=== PATIENT | male | born 1965 | race Caucasian/White ===

== ENCOUNTER 2023-12-20 16:51 | Emergency (ER) | payer OTHER, SELFPAY ==
[2023-12-20 16:57] VITALS: BP 148/84
[2023-12-20 17:04] VITALS: BMI 29.7
[2023-12-20 17:08] VITALS: BP 136/78
[2023-12-20 18:00] VITALS: BP 140/80
[2023-12-20 18:08] LABS: % Basophils 1.3 % (0-2); % Eosinophils 2.9 % (0-6); % Immature Granulocytes 0.5 % (0-0.5); % Lymphocytes 30.1 % (20.5-51.1); % Monocytes 5.9 % (1.7-9.3); % Neutrophils 59.3 % (42.2-75.2); Absolute Basophils 0.1 10^3/uL (0-0.2); Absolute Eosinophils 0.2 10^3/uL (0-0.7); Absolute Lymphocytes 1.9 10^3/uL (1.2-3.4); Absolute Monocytes 0.4 10^3/uL (0.1-0.6); Absolute Neutrophils 3.7 10^3/uL (1.4-6.5); Hematocrit 40.7 % (39.0-52.0); Mean Corp Hgb Conc. 40.3 g/dL (33.0-37.0); Mean Corpuscular Hgb 33.5 pg (27.0-31.0); Mean Corpuscular Volume 83.2 fL (80.0-94.0); Mean Platelet Volume 11.2 fL (7.4-10.4); Nucleated Red Blood Cells % 0.3 % (-); Platelet Count 329 10^3/uL (130-400); Red Blood Cell Count 4.89 10^6/uL (4.70-6.10); Red Cell Dist. Width 12.4 % (11.5-14.5); White Blood Cell Count 6.3 10^3/uL (4.8-10.8)
--- NOTE | 2023-12-20 18:13 | ED.GENMED ---
History of Present Illness
General
Chief Complaint: Chest Pain
Time Seen by Provider: 12/20/23 17:05
History of Present Illness
History of Present Illness:
58-year-old male with history of hypertension and hyperlipidemia presenting to the emergency department for chest pain. Patient reports the past 3 to 4 days he has been having left-sided chest pain, which has been intermittent in nature. However,
does have a constant dull ache. Yesterday, felt the pain go to his shoulder, which concerned him. Does note that he has had chest pain in the past, follows with cardiology. Last stress test was about 3 to 4 years ago. Reports family history of
heart disease, father at age of 56 of a heart attack. Denies difficulty breathing. Denies fever. Denies abdominal pain or GI symptoms. Denies additional acute medical complaints.
Past History
Past History
ED Past Medical History: HTN, Hypercholesterolemia and Other (kidney stone , hiatal hernia); Negative IDDM or NIDDM
ED Past Surgical History: Orthopedic (R shoulder pectoral muscle reattached)
Social History
Tobacco: Non-smoker
Alcohol: Occasional
Drug: None
Personal:
Living: with family
Employment: Employed
Family History
Family History: Hypertension (Father and multiple siblings) and Early CAD (Father)
Phy Exam
Physical Exam
Physical Exam:
General: Well-appearing, no clinical signs of dehydration, nontoxic and in no acute distress
HEENT: protecting airway
Neck: appears supple
CV: Normal heart rate, regular rhythm, no evidence of cyanosis
Resp: No accessory muscle use, no increased work of breathing, lungs clear to auscultation bilaterally
Abd: Soft and non-distended, no tenderness to palpation
Extremities: No deformities, no swelling, no erythema
Neuro: alert, no focal neurologic deficit
: deferred
Rectal: deferred
Psych: Normal affect
Skin: Intact
Scores
Heart Score for Chest Pain Patients
STEMI patient?: No
History: Slightly or Non-Suspicious
ECG: Normal
Age: >45 - <65 years
Risk Factors: >/= 3 Risk Factors or History of CAD
Troponin: </= Normal Limit
Heart Score for Chest Pain Patients: 3
Heart Score Risk: 2.5% MACE over next 6 weeks
Course
Orders/Labs/Results
Orders:
Orders
12/20/23 16:52
ECG [Electrocardiogram (*1)] Urgent
Reason for Study: Chest Pain
EKG- Treatment ONCE
12/20/23 17:14
Complete Blood Count/With Diff Urgent
12/20/23 17:51
Basic Metabolic Panel Urgent
12/20/23 19:02
Troponin I Urgent
12/20/23 21:34
Troponin I Urgent
12/20/23 22:29
EKG [Electrocardiogram (*1)] Urgent
Reason for Study: Tachycardia
EKG- Treatment ONCE
Abnormal Lab Results
12/20/23 12/20/23
17:14 17:51
MCH 33.5 H pg
(27.0-31.0)
MCHC 40.3 H g/dL
(33.0-37.0)
MPV 11.2 H fL
(7.4-10.4)
Carbon Dioxide 19 L mmol/L
(22-30)
Calcium 7.8 L mg/dl
(8.4-10.2)
12/20/23 17:14
12/20/23 17:51
Vital Signs
Initial and Last Documented VS:
Initial Vital Signs
Temp Pulse Resp BP Pulse Ox
98.3 F 68 18 148/84 96
12/20/23 16:57 12/20/23 16:57 12/20/23 16:57 12/20/23 16:57 12/20/23 16:57
Last Documented Vital Signs
Temp Pulse Resp BP Pulse Ox
98.3 F 64 19 147/88 97
12/20/23 16:57 12/20/23 22:00 12/20/23 22:00 12/20/23 20:00 12/20/23 20:00
MDM/Problems Addressed
MDM/Problems Addressed:
58-year-old male with history of hypertension hyperlipidemia presenting to the emergency department for left-sided chest pain. Vital signs on arrival are normal.
On exam, patient is well-appearing, no acute distress. Benign cardiac and pulmonary exam. EKG reviewed, no STEMI. No significant change from prior EKG. Patient does however have cardiac risk factors. For this reason we will obtain laboratory
analysis including troponin
Patient otherwise hemodynamically stable. No respiratory symptoms, no tachycardia, no PE risk factors. Blood pressure within normal limits, pain is not radiating to the back, without concern for aortic catastrophe
20:30 -troponin is within normal limits, however detectable. For this reason we will obtain second troponin.
22:30 -second troponin within normal limits. EKG repeated, unchanged. Patient remained stable. However, patient's blood test Clotting secondary to high fat content. Patient reports this is known to him, has had very high triglycerides since he
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 At this time, feel patient is stable for discharge, however given patient's risk factors, feel patient warrants close cardiology follow-up, likely stress testing or cardiac catheterization.
Advise calling his merchandise associate tomorrow. Patient in agreement with plan.
*EKG
Interpreted by ED Provider?: Yes
EKG Intrepretation Date: 12/20/23
EKG Intrepretation Time: 18:30
Interpretation: normal
Comparison EKG: no comparison EKG present
Heart Rate: 64
Rate: normal
Rhythm: sinus
Moore: normal axis
Interval: normal interval
QRS Pattern: normal QRS and left vent hypertrophy
Ischemia: no ischemia
*Critical Care Note
Total Time (30-74mins, 75-104mins- exclusive of procedures): Not Applicable
ED Attending Note
-
Portions of this chart may have been created with voice recognition software.� Occasional wrong word or��sound alike� substitutions may have occurred due to the inherent limitations of voice recognition software.
Discharge Plan
Departure
Prescriptions:
No Action
atorvastatin 40 MG tablet
40 mg PO DAILY
amlodipine 5 MG tablet
5 mg PO DAILY
aspirin [Adult Low Dose Aspirin] 81 MG tablet,delayed release (DR/EC)
81 mg PO DAILY
benazepril 40 MG tablet
40 mg PO DAILY
omega-3 acid ethyl esters [Lovaza] 1 GM capsule
2 gm PO DAILY
fenofibrate 160 MG tablet
160 mg PO DAILY
chlorthalidone 25 MG tablet
25 mg PO DAILY Qty: 0 0RF
Rx Instructions:
DO NOT RESUME FOR 3 MORE DAYS
pantoprazole 40 MG tablet,delayed release (DR/EC)
40 mg PO BID Qty: 60 0RF
Referrals:
Polo Nguyen MD [Family Provider] -
Interventions
Interventions:
*Risk Screen - Suicide Last Done: 12/20/23 17:04
*General Assessment Last Done: 12/20/23 17:04
*Neglect/Abuse Screening Last Done: 12/20/23 17:04
ED- Fall Risk Assessment Last Done: 12/20/23 17:04
*ED COVID-19 Vaccine History Last Done: 12/20/23 17:04
ED- Cardiac Assessment Last Done: 12/20/23 17:12
Discharge Date and Time
Print Language: BELARUSIAN
[2023-12-20 18:38] LABS: Blood Urea Nitrogen 17 mg/dl (9-20); Calcium 7.8 mg/dl (8.4-10.2); Carbon Dioxide 19 mmol/L (22-30); Chloride 106 mmol/L (98-107); Estimated Creatinine Clearance 99 ml/min; Glucose 87 mg/dl (70-99); Sodium 136 mmol/L (135-145); eGFR > 60.00
[2023-12-20 19:02] VITALS: BP 143/89
[2023-12-20 19:44] LABS: Troponin I 0.023 ng/ml
[2023-12-20 20:00] VITALS: BP 147/88
[2023-12-20 22:00] VITALS: BP 145/80
[2023-12-20 22:05] LABS: Troponin I 0.022 ng/ml
== END 2023-12-20 22:40 | disposition home or self-care (01) ==
LOC: EMR 16:51
PROVIDERS: Emergency Medicine; EMERGENCY PHYSICIAN Student in an Organized Health Care Education/Training Program; FAMILY PHYSICIAN Family Medicine
DX: R07.89 Other chest pain (principal); I10 Essential (primary) hypertension; E78.00 Pure hypercholesterolemia, unspecified; I25.10 Atherosclerotic heart disease of native coronary artery without angina pectoris; Z82.49 Family history of ischemic heart disease and other diseases of the circulatory system; Z87.442 Personal history of urinary calculi
CPT/HCPCS: 99283; 80048; 84484; 85025; 93005; 96374; 96375; 96376

== ENCOUNTER 2023-12-26 06:07 | Day surgery (SDC) | payer OTHER, SELFPAY ==
[2023-12-26] VITALS (13 sets, daily range): BP systolic 122–170; BP diastolic 70–89; BMI 28.1
[2023-12-26] MEDS: NSS 259 ML IV (06:48)
[2023-12-26] MEDS: LOW STRENGTH ASPIRIN 81 MG PO (06:51)
[2023-12-26 08:18] LABS: Hematocrit 36.5 % (39.0-52.0); Hemoglobin 13.7 g/dL (13.0-18.0); Mean Corp Hgb Conc. 37.5 g/dL (33.0-37.0); Mean Corpuscular Hgb 30.4 pg (27.0-31.0); Mean Corpuscular Volume 81.1 fL (80.0-94.0); Mean Platelet Volume 9.9 fL (7.4-10.4); Platelet Count 157 10^3/uL (130-400); White Blood Cell Count 5.1 10^3/uL (4.8-10.8)
[2023-12-26 08:27] LABS: ACT-LR - POC 277 Seconds (116-155)
[2023-12-26 08:37] LABS: ACT-LR - POC 319 Seconds (116-155)
[2023-12-26 08:37] LABS: Blood Urea Nitrogen 14 mg/dl (9-20); Calcium 8.8 mg/dl (8.4-10.2); Carbon Dioxide 24 mmol/L (22-30); Chloride 103 mmol/L (98-107); Estimated Creatinine Clearance 99 ml/min; Glucose 114 mg/dl (70-99); Potassium 3.4 mmol/L (3.5-5.1); Sodium 134 mmol/L (135-145); eGFR > 60.00
[2023-12-26 08:54] LABS: ACT-LR - POC 282 Seconds (116-155)
--- NOTE | 2023-12-26 09:22 | ITS.CL.CATH ---
[employer] - Catheterization
Cardiac Catheterization
Procedure Report:
LEFT HEART CATH AND CORONARY INTERVENTION
Date of Procedure: December 26, 2023
Referring: Dr. Viet Stevens
PROCEDURES:
1. Left heart catheterization with coronary and single-plane left ventriculography
2. Successful stenting of the right coronary artery with a 3.5 x 38 mm [place] stent that was postdilated with a 3.75 mm noncompliant balloon to high pressures
INDICATION: Unstable angina.
ACCESS: Right radial artery, 6 Slovenian sheath
HEMODYNAMICS (mmHg):
AO (s/d, m) : 148/75, 106
LV (s/d) : 149/11
LVEDP : 23
CORONARY FINDINGS
Dominance: Right
LEFT MAIN: Normal
LEFT ANTERIOR DESCENDING: The LAD arises normally from the left main and runs in the anterior interventricular groove. The LAD has a 30% mid stenosis near the origin of a first septal bone char operator. The mid to distal LAD has only minor irregularity
RAMUS: Large caliber vessel that bifurcates distally
CIRCUMFLEX: The circumflex is a small to medium caliber nondominant vessel. OM1 has small. OM 2 is small
RIGHT CORONARY: The right coronary artery is a dominant vessel to 30% proximal stenosis then long 40-50% stenosis. The mid part of the RCA has a focal 95% stenosis. The distal RCA becomes a large-caliber vessel that supplies a large PDA and
small-medium posterolateral branch
VENTRICULOGRAPHY: Left ventriculography is performed in an ROSS projection. The digital single-plane left ventricular ejection fraction is estimated at 65%. No regional wall motion abnormalities are noted
ANGIOPLASTY PROCEDURE DETAIL: Upon review of the diagnostic catheterization films the decision was made to proceed with percutaneous revascularization of the high-grade mid RCA stenosis. I felt that stenting proximal and distal to the tightest
segment was indicated given diffuse nature of disease proximal and distal to the high-grade mid RCA stenosis. A 180 mg loading dose of ticagrelor was given given the unstable nature of his symptoms. Intravenous heparin was administered and the ACT
was monitored throughout the procedure. The origin of the right coronary artery was cannulated with a 6 Slovenian JR4 guiding catheter and a BMW guidewire was advanced to the distal PDA. Balloon predilation was performed with a 2.25 x 20 mm Euphora
balloon and was followed by placement of a 3.5 x 38 mm [place] stent that was position with angiographic and fluoroscopic guidance. The stent was implanted at nominal pressures then postdilated to high pressures with a 3.75 mm MC balloon with a nice
angiographic result
RADIATION SUMMARY: Fluoro Time (min): 10.3, Dose (mGy): 633.7, DAP (Gy.cm2) : 49.1
CONCLUSIONS
1. Unstable angina with high-grade mid RCA stenosis that was successfully treated with a 3.5 x 38 mm [place] stent that was implanted at nominal pressures then postdilated distally with a 3.75 mm noncompliant balloon to 16 samira and in the proximal and
midportion to 21 samira with a nice angiographic result
2. Preserved left ventricular systolic function
RECOMMENDATIONS
1. Uninterrupted dual antiplatelet therapy for 12 months
2. Discussed the need to remain compliant with medical therapy. He discontinued his statin therapy in the past without calling the office and has been marginally compliant with medicines in the past at times. Will work towards starting PCSK9
therapy given intolerance to several statins at higher doses. LDL cholesterol is suboptimal
Copy to: Dr. Viet Stevens, Dr. Polo Nguyen
[2023-12-26] MEDS: ZESTRIL 40 MG PO (09:55)
[2023-12-26] MEDS: KCL 40 MEQ PO (09:56)
--- NOTE | 2023-12-26 12:36 | W.PN.UPDATE ---
Update Note
Progress Note Update
Pt seen post RCA PCI. Right radial cath site without ht/bleeding. OOB to bathroom. Post EKG SB 40-50s, no vt/arrhythmia. Pt understands the importance of uninterrupted DAPT w/asa, brilinta. CM cost check with good pricing for patient. Cardiac rehab
consulted.
Pre-cath labs with hypokalemia, 3.4. Replaced with 40meq KCL, and will decrease chlorthalidone to 12.5mg daily, with repeat BMP in 1 week. Will increase crestor to 4x/weekly and add zetia daily. If unable to tolerate statin increase, can consider
PCSK9 inhibitor.
Followup at [facility] arranged. Home later today if cath site/tele remain stable.
== END 2023-12-26 14:30 | disposition home or self-care (01) ==
LOC: CATH 06:07
PROVIDERS: Nurse Practitioner; ATTENDING PHYSICIAN Internal Medicine Interventional Cardiology; FAMILY PHYSICIAN Family Medicine
DX: I25.110 Atherosclerotic heart disease of native coronary artery with unstable angina pectoris (principal); Z95.5 Presence of coronary angioplasty implant and graft; Z91.199 Patient's noncompliance with other medical treatment and regimen due to unspecified reason; Z79.02 Long term (current) use of antithrombotics/antiplatelets; Z79.82 Long term (current) use of aspirin; I10 Essential (primary) hypertension; E78.5 Hyperlipidemia, unspecified
CPT/HCPCS: 80048; 85027; 85347; 93005; 93458; C1725; C1769; C1874; C1894; C9600; Q9967

== ENCOUNTER 2023-12-30 12:41 | Emergency (ER) | payer OTHER, SELFPAY ==
[2023-12-30] VITALS (10 sets, daily range): BP systolic 115–136; BP diastolic 68–79; BMI 28.1
--- NOTE | 2023-12-30 13:11 | EDRN ---
Dr. Tirado currently at the pts bedside speaking with the pt, the pt is resting in stretcher in the lowest position, side rails up x1, HOB elevated, no s/s of distress, Sinus Bradycardia in the 40's, Sp02 95% on RA, will continue to monitor the pt
closely
--- NOTE | 2023-12-30 13:17 | ED.GENMED ---
History of Present Illness
General
Chief Complaint: Chest Problem
Source: patient
Time Seen by Provider: 12/30/23 13:06
History of Present Illness
History of Present Illness:
58-year-old male presents to the emergency room complaining of shortness of breath. Patient states that he had a cardiac catheterization performed performed 5 days ago. Patient had stenting of a right coronary artery lesion. Patient has compliant
with his medication since then. Patient denies chest pain with exertion. He denies pain with deep inspiration. But he does feel short of breath more so with exertion. This has been present since the cardiac catheterization.
Past History
Past History
ED Past Medical History: HTN, Hypercholesterolemia and Other (kidney stone , hiatal hernia); Negative IDDM or NIDDM
ED Past Surgical History: Orthopedic (R shoulder pectoral muscle reattached)
Social History
Tobacco: Non-smoker
Alcohol: Occasional
Drug: None
Personal:
Living: with family
Employment: Employed
Family History
Family History: Hypertension (Father and multiple siblings) and Early CAD (Father)
Phy Exam
Physical Exam
Physical Exam:
General: Awake, Alert, Oriented X3. No acute distress.
Vitals: Bradycardic
Head: Atraumatic
Eyes: Pupils equal, EOMI
Throat: Airway intact, no exudates
Neck: Trachea midline
Lungs: Clear and equal b/l
Heart: Regular rate, no murmurs
Abd: Soft, Nontender, No pulsatile mass
Neuro: Nonfocal
Skin: Warm, dry, no rash
Extremities: pulses equal b/l, no edema
Course
Orders/Labs/Results
Orders:
Orders
12/30/23 12:42
ECG [Electrocardiogram (*1)] Urgent
Reason for Study: Chest Pain
EKG- Treatment ONCE
12/30/23 12:52
NT-proBNP Urgent
Troponin I Urgent
12/30/23 12:53
CBC/With Diff [Complete Blood Count/With Diff] Urgent
CMP [Comprehensive Metabolic Panel] Urgent
12/30/23 13:10
Add On- LAB Urgent
Tests Added?: Pro-BNP
12/30/23 13:16
CR Chest - 2 Views Urgent
Comment:
Reason For Exam: sob
12/30/23 13:27
NT-proBNP Urgent
12/30/23 15:40
Troponin I Urgent
Abnormal Lab Results
12/30/23 12/30/23
12:52 12:53
MCHC 37.3 H g/dL
(33.0-37.0)
Glucose 105 H mg/dl
(70-99)
Total Bilirubin 1.7 H mg/dl
(0.2-1.3)
AST 61 H U/L
(17-59)
ALT 86 H U/L
(0-50)
Troponin I 0.036 H* ng/ml
12/30/23 12:53
12/30/23 12:53
Vital Signs
Initial and Last Documented VS:
Initial Vital Signs
Temp Pulse Resp BP Pulse Ox
97.8 F 48 18 136/77 98
12/30/23 12:49 12/30/23 12:49 12/30/23 12:49 12/30/23 12:49 12/30/23 12:49
Last Documented Vital Signs
Temp Pulse Resp BP Pulse Ox
98.5 F 51 16 132/79 96
12/30/23 13:13 12/30/23 16:45 12/30/23 16:43 12/30/23 16:43 12/30/23 16:45
MDM/Problems Addressed
Differential Diagnosis Includes:
Pneumothorax heart failure, anemia, ACS
MDM/Problems Addressed:
Patient presents with chest pain. He is just a few days post cath. His troponin is flat. Chest x-ray is unremarkable. He was evaluated by cardiology who agrees that his dyspnea does not appear to be related to any cardiac complications. Patient
stable for discharge home and outpatient follow-up
*Radiology
Radiology exam reviewed: radiology read reviewed
*Pulse Oximetry
Patient hypoxic: no
*EKG
Interpreted by ED Provider?: Yes
Interpretation: abnormal
Heart Rate: 45
Rate: bradycardiac
Rhythm: sinus
Pickerel: normal axis
Interval: normal interval
QRS Pattern: normal QRS
Ischemia: non-specific ST changes
*Air Hammer Operator Interpretation
Rate: bradycardiac
Interpretation: abnormal
Heart Rate: 45
*Critical Care Note
Total Time (30-74mins, 75-104mins- exclusive of procedures): Not Applicable
ED Attending Note
-
Portions of this chart may have been created with voice recognition software.� Occasional wrong word or��sound alike� substitutions may have occurred due to the inherent limitations of voice recognition software.
Discharge Plan
Departure
Patient Disposition: Home (Routine Discharge)
Date of Disposition: 12/30/23
Time of Disposition: 17:06
Patient with high blood pressure during this ER visit?: No
Condition: Good
Discharge Problem:
Dyspnea
Instructions: Shortness of Breath, Adult ED
Prescriptions:
New
epinephrine [Auvi-Q] 0.3 mg/0.3 mL auto-injector
0.3 mg IM Q5-15M PRN (Reason: anaphylaxis) Qty: 2 0RF
No Action
amlodipine 5 MG tablet
5 mg PO DAILY
aspirin [Adult Low Dose Aspirin] 81 MG tablet,delayed release (DR/EC)
81 mg PO DAILY
benazepril 40 MG tablet
40 mg PO DAILY
omega-3 acid ethyl esters [Lovaza] 1 GM capsule
2 gm PO DAILY
fenofibrate 160 MG tablet
160 mg PO DAILY
omeprazole 20 mg Capsule,Delayed Release(Dr/Ec)
20 mg PO DAILYPRN PRN (Reason: gerd)
metoprolol succinate 25 mg Tablet Extended Release 24 Hr
25 mg PO DAILY
Brilinta 90 mg tablet
90 mg PO BID Qty: 180 3RF
ezetimibe [Zetia] 10 mg tablet
10 mg PO DAILY Qty: 90 3RF
chlorthalidone 25 MG tablet
25 mg PO DAILY
rosuvastatin 5 mg tablet
5 mg PO MOWEFR@0800
Referrals:
Niharika Saleh PA-C [Specified Professional Personl] - 01/25/24 3:40 pm (You have a follow up visit with Dr. Stevens's Niharika JUNIOR, at the [facility] office. Please call with questions )
Polo Nguyen MD [Family Provider] -
Activity Restrictions/Additional Instructions:
Please follow up with cardiology as scheduled.
Interventions
Interventions:
*Risk Screen - Suicide Last Done: 12/30/23 13:13
*General Assessment Last Done: 12/30/23 13:13
*Neglect/Abuse Screening Last Done: 12/30/23 13:13
ED- Fall Risk Assessment Last Done: 12/30/23 13:13
*ED COVID-19 Vaccine History Last Done: 12/30/23 13:13
*Nursing Disposition Last Done: 12/30/23 17:15
ED- Cardiac Assessment Last Done: 12/30/23 13:13
ED- Pulmonary Assessment Last Done: 12/30/23 13:13
Discharge Date and Time
Discharge Date/Time: 12/30/23 17:28
Print Language: DANISH
[2023-12-30 13:27] LABS: ALT (SGPT) 86 U/L (0-50); AST (SGOT) 61 U/L (17-59); Albumin 4.7 g/dl (3.5-5.0); Alkaline Phosphatase 61 U/L (38-126); Blood Urea Nitrogen 16 mg/dl (9-20); Calcium 9.7 mg/dl (8.4-10.2); Carbon Dioxide 23 mmol/L (22-30); Chloride 104 mmol/L (98-107); Estimated Creatinine Clearance 86 ml/min; Glucose 105 mg/dl (70-99); Potassium 3.7 mmol/L (3.5-5.1); Sodium 139 mmol/L (135-145); Total Bilirubin 1.7 mg/dl (0.2-1.3); Total Protein 7.1 g/dl (6.3-8.2); eGFR > 60.00
[2023-12-30 13:38] LABS: Troponin I 0.036 ng/ml
--- NOTE | 2023-12-30 13:46 | EDRN ---
Troponin came back elevated, Dr. Tirado made aware
[2023-12-30 13:47] LABS: % Basophils 0.7 % (0-2); % Eosinophils 2.4 % (0-6); % Immature Granulocytes 0.4 % (0-0.5); % Lymphocytes 26.4 % (20.5-51.1); % Monocytes 8.2 % (1.7-9.3); % Neutrophils 61.9 % (42.2-75.2); Absolute Basophils 0.1 10^3/uL (0-0.2); Absolute Eosinophils 0.2 10^3/uL (0-0.7); Absolute Lymphocytes 1.8 10^3/uL (1.2-3.4); Absolute Monocytes 0.6 10^3/uL (0.1-0.6); Absolute Neutrophils 4.3 10^3/uL (1.4-6.5); Hematocrit 41.5 % (39.0-52.0); Hemoglobin 15.5 g/dL (13.0-18.0); Mean Corp Hgb Conc. 37.3 g/dL (33.0-37.0); Mean Corpuscular Hgb 30.5 pg (27.0-31.0); Mean Corpuscular Volume 81.5 fL (80.0-94.0); Mean Platelet Volume 9.9 fL (7.4-10.4); Nucleated Red Blood Cells % 0 % (-); Platelet Count 191 10^3/uL (130-400); Red Blood Cell Count 5.09 10^6/uL (4.70-6.10); Red Cell Dist. Width 11.9 % (11.5-14.5)
[2023-12-30 14:03] LABS: NT-proBNP < 20.0 pg/ml
[2023-12-30 14:10] LABS: NT-proBNP < 20.0 pg/ml
--- NOTE | 2023-12-30 15:21 | CON.CAR ---
Addendum entered and electronically signed by Fawn Roberts DO 12/30/23 17:51:
I saw and examined the patient.
The Supervisor Sawmill's note was reviewed and I agree with the note.
Comment: Sarbjit is a 58 year old male with PMH of CAD with recent RCA PCI 12/26/2023, hypertension, hyperlipidemia with statin intolerance, and GERD. He presents to ER for evaluation of exertional shortness of breath after running after his dog
disturbed a beehive on his property. Fortunately he was not stung; he does have a bee allergy. He denies wheezing or lip/tongue swelling. No chest pain or pressure. He reports he has had ongoing shortness of breath since prior to his cardiac
catheterization. He has been compliant with his medications including aspirin/Brilinta. In ER, his vitals have been stable and EKG also stable. Troponin mildly elevated at 0.036. He has no complaints currently. He has been compliant with all of
his medications including his DAPT with aspirin and Brilinta. Cardiology consulted for evaluation given recent PCI.
General: No acute distress, AAOX3
Neck: Negative JVD
Heart: Regular, Negative S3 positive S1/S2, Negative S4, No murmur
Lungs: CTA b/l, negative wheezes/rales/rhonchi
Abd: Positive BS, NT/ND, neg rebound/rigidity/guarding
Ext: Negative cyanosis/clubbing/edema. Radial wrist site intact.
Plan:
Exertional dyspnea after running from a disturbed a beehive
-Although patient does have a bee allergy he was not stung and shows no evidence for acute allergic reaction. Talked with ER physician who will send him home with an EpiPen
-No evidence of heart failure by exam or chest x-ray
-proBNP less than 20
-Vital signs, pulse ox stable
-No evidence to suggest acute coronary syndrome. Mildly elevated troponin likely related to recent procedure. Repeat cardiac troponin improved/flat with no complaints of chest pain
-He does state that he has been short of breath prior to this incident. Offered switching Brilinta to Plavix however he did he declined at this time. If symptoms continue he will notify our office
Stable for discharge home
Outpatient cardiac follow-up previously arranged
Outpatient cardiac rehab previously arranged
Original Note:
Consultation
Consultation Request
Date/Time Consultation Requested: 12/30/2023
Date/Time Consultation Performed: 12/30/2023
Requesting Provider: Dr. Tirado
Performing Provider: Iwona Cutler PA-C for Dr. Roberts
Reason for Consultation: SOB post cath
Medical History
-
History of Present Illness:
HPI: Sarbjit is a 58 year old male with PMH of CAD with recent RCA PCI 12/26/2023, hypertension, hyperlipidemia with statin intolerance, and GERD. He presents to ER for evaluation of shortness of breath. He reports he has had ongoing shortness
of breath since prior to his cardiac catheterization. Prior to his cath, he describes shortness of breath with exertion that would lead into chest discomfort/pain. Shortness of breath and pain both resolved with rest. Following his cardiac
catheterization and PCI of the RCA earlier this week, he describes complete resolution of his chest discomfort, but he continues with ongoing shortness of breath with exertion. He denies any shortness of breath at rest. Today, while walking his
dog, they started being chased by bees and he needed to run to try and avoid being stung. With this, he had SOB which he states improved after resting for a few minutes. He called the cardiology office and was recommended ER evaluation. In ER, his
vitals have been stable and EKG also stable. Troponin mildly elevated at 0.036. He has no complaints currently. He has been compliant with all of his medications including his DAPT with aspirin and Brilinta. Cardiology consulted for evaluation given
recent PCI.
PMH:
CAD
s/p RCA PCI 12/26/2023
Hypertension
Hyperlipidemia
Intolerant to statins
GERD
Past Medical History
Past Medical History: Other (In HPI)
Past Surgical History: Cardiac (RCA PCI 12/26/2023) and Other (Right pectoralis repair, Achilles tendon repair)
Social History
Tobacco: Non-Smoker
Alcohol: Occasional
Drug: None
Personal:
Living: With Family
Employment: Employed
Family History
Family History: Diabetes and Hypertension
Allergies / Home Medications
Allergy/AdvReac Type Severity Reaction Status Date / Time
penicillin G Allergy Unknown Verified 12/30/23 12:51
Penicillins Allergy Unknown Verified 12/30/23 12:51
Lrumbyh-YXT-IiN Reductase Allergy Unknown Verified 12/30/23 12:51
Inhibitor
�Medication �Instructions �Recorded �Confirmed �Type
amlodipine 5 mg tablet 5 mg PO DAILY Blood pressure 01/09/18 12/30/23 History
aspirin 81 mg tablet,delayed 81 mg PO DAILY Blood clot 01/09/18 12/30/23 History
release (Adult Low Dose Aspirin) prevention/tx
benazepril 40 mg tablet 40 mg PO DAILY Blood pressure 01/09/18 12/30/23 History
omega-3 acid ethyl esters 1 gram 2 gm PO DAILY High cholesterol 01/09/18 12/30/23 History
capsule (Lovaza)
fenofibrate 160 mg tablet 160 mg PO DAILY High cholesterol 05/05/21 12/30/23 History
ezetimibe 10 mg tablet (Zetia) 10 mg PO DAILY #90 tabs 12/26/23 12/30/23 Rx
metoprolol succinate 25 mg 25 mg PO DAILY 12/26/23 12/30/23 History
tablet,extended release 24 hr
omeprazole 20 mg capsule,delayed 20 mg PO DAILYPRN PRN gerd 12/26/23 12/30/23 History
release
ticagrelor 90 mg tablet (Brilinta) 90 mg PO BID #180 tabs 12/26/23 12/30/23 Rx
chlorthalidone 25 mg tablet 25 mg PO DAILY Blood pressure 12/30/23 12/30/23 History
rosuvastatin 5 mg tablet 5 mg PO MOWEFR@0800 12/30/23 12/30/23 History
Review of Systems
-
History Source: Patient
All other systems: Negative unless noted
Physical Exam
Vital Signs
Temp Pulse Resp BP Pulse Ox
98.5 F 47 16 118/68 95
12/30/23 13:13 12/30/23 14:46 12/30/23 14:46 12/30/23 14:46 12/30/23 14:46
Lab Results
12/30/23 12:53
12/30/23 12:53
Troponin I 0.036 ng/ml H* 12/30/23 12:52
Utx-B-[id number] Pept < 20.0 pg/ml 12/30/23 13:27
Physical Exam
General: Well Developed, Well Nourished and No Apparent Distress
HEENT: Normocephalic, Anicteric and Moist Mucous Membranes
Respiratory: Clear and Non Labored Respirations
Cardiac: S1/S2 and Regular Rhythm
Musculoskeletal: No Clubbing, No Cyanosis and No Edema
Skin: Warm and Dry
Neuro: AO x 3 and Nonfocal/Grossly Intact
Psych: Calm
Impression / Plan
-
PCP: Dr. Aj
Calculation Reviewer: Dr. Stevens
Impression:
Presented with SOB, chronic since before cath
Elevated troponin
CAD
s/p RCA PCI 12/26/2023
Hypertension
Hyperlipidemia
Intolerant to statins
GERD
Plan:
-Presented for evaluation of exertional SOB. He has been having this since before his cardiac cath. Prior to cath he would also experience exertional chest pain/pressure.
-Underwent LHC 12/25 and was found to have 95% stenosis of the mid RCA which was successfully stented. Started on DAPT with aspirin and Brilinta which he has been compliant with. No missed doses.
-He has been chest pain free since his catheterization, however still has some SOB which he feels may be somewhat improved after cath.
-He has not been very active and has been taking it easy this week. Earlier today needed to run from bees which prompted SOB and ER evaluation.
-EKG stable, SR without any acute ischemic changes.
-Initial troponin mildly elevated at 0.036. Will repeat. Suspect nonischemic myocardial injury related to recent cath/PCI.
-BP stable, well controlled. Continue amlodipine, benazepril, and Toprol.
-ProBNP <20. Continue chlorthalidone 25mg daily.
-Chest xray clear, no active disease.
-Cholesterol has been uncontrolled prior to cath with history of statin intolerance. Repatha has been started as OP.
-He is planned to start cardiac rehab on 01/12. He will also start slowly increasing his activity level at home.
-If he continues to have SOB, would consider transitioning Brilinta to Plavix. Patient prefers to continue on Brilinta at this time, but will call with any concerns.
-If repeat troponin overall flat, ok for discharge from cardiac standpoint.
-Follow up arranged.
HPI: Sarbjit is a 58 year old male with PMH of CAD with recent RCA PCI 12/26/2023, hypertension, hyperlipidemia with statin intolerance, and GERD. He presents to ER for evaluation of shortness of breath. He reports he has had ongoing shortness
of breath since prior to his cardiac catheterization. Prior to his cath, he describes shortness of breath with exertion that would lead into chest discomfort/pain. Shortness of breath and pain both resolved with rest. Following his cardiac
catheterization and PCI of the RCA earlier this week, he describes complete resolution of his chest discomfort, but he continues with ongoing shortness of breath with exertion. He denies any shortness of breath at rest. Today, while walking his
dog, they started being chased by bees and he needed to run to try and avoid being stung. With this, he had SOB which he states improved after resting for a few minutes. He called the cardiology office and was recommended ER evaluation. In ER, his
vitals have been stable and EKG also stable. Troponin mildly elevated at 0.036. He has no complaints currently. He has been compliant with all of his medications including his DAPT with aspirin and Brilinta. Cardiology consulted for evaluation given
recent PCI.
Data Reviewed
-
EKG: Tracing Personally Visualized and interpreted
Radiology: Report Reviewed by me
Labs: Labs Reviewed by me
Old Records: Reviewed
[2023-12-30 16:18] LABS: Troponin I 0.033 ng/ml
--- NOTE | 2023-12-30 16:42 | EDRN ---
Troponin came back lower than the first, provider notified
== END 2023-12-30 17:28 | disposition home or self-care (01) ==
LOC: EMR 12:41
PROVIDERS: Emergency Medicine; EMERGENCY PHYSICIAN Emergency Medicine; FAMILY PHYSICIAN Family Medicine
DX: R06.09 Other forms of dyspnea (principal)
CPT/HCPCS: 99285; 71046; 80053; 83880; 84484; 85025; 93005

== ENCOUNTER 2024-01-27 17:47 | Outpatient (RCR) | payer OTHER, SELFPAY | END 2024-01-27 23:59 | disposition home or self-care (01) | LOC: CRHB 17:47 | PROVIDERS: ATTENDING PHYSICIAN Internal Medicine Interventional Cardiology; FAMILY PHYSICIAN Family Medicine | DX: I25.10 Atherosclerotic heart disease of native coronary artery without angina pectoris (principal); Z95.5 Presence of coronary angioplasty implant and graft | CPT/HCPCS: 93798 ==

== ENCOUNTER 2024-07-05 16:01 | Emergency (ER) | payer OTHER, SELFPAY ==
[2024-07-05 16:25] VITALS: BP 172/93
[2024-07-05 16:59] LABS: % Basophils 0.9 % (0-2); % Eosinophils 1.4 % (0-6); % Immature Granulocytes 0.3 % (0-0.5); % Lymphocytes 27.5 % (20.5-51.1); % Monocytes 5.7 % (1.7-9.3); % Neutrophils 64.2 % (42.2-75.2); Absolute Basophils 0.1 10^3/uL (0-0.2); Absolute Eosinophils 0.1 10^3/uL (0-0.7); Absolute Monocytes 0.4 10^3/uL (0.1-0.6); Absolute Neutrophils 4.8 10^3/uL (1.4-6.5); Hematocrit 41.3 % (39.0-52.0); Hemoglobin 15.1 g/dL (13.0-18.0); Mean Corp Hgb Conc. 36.6 g/dL (33.0-37.0); Mean Corpuscular Volume 84.8 fL (80.0-94.0); Mean Platelet Volume 9.5 fL (7.4-10.4); Nucleated Red Blood Cells % 0 % (-); Platelet Count 212 10^3/uL (130-400); Red Blood Cell Count 4.87 10^6/uL (4.70-6.10); White Blood Cell Count 7.4 10^3/uL (4.8-10.8)
[2024-07-05 17:06] LABS: ALT (SGPT) 79 U/L (0-50); AST (SGOT) 75 U/L (17-59); Albumin 4.4 g/dl (3.5-5.0); Alkaline Phosphatase 74 U/L (38-126); Blood Urea Nitrogen 12 mg/dl (9-20); Calcium 8.9 mg/dl (8.4-10.2); Carbon Dioxide 19 mmol/L (22-30); Chloride 106 mmol/L (98-107); Glucose 121 mg/dl (70-99); Potassium 3.3 mmol/L (3.5-5.1); Sodium 136 mmol/L (135-145); Total Bilirubin 1.9 mg/dl (0.2-1.3); Total Protein 7.1 g/dl (6.3-8.2); eGFR > 60.00
[2024-07-05 17:10] LABS: INR 1.04; PT 14.1 Sec (11.4-14.6)
[2024-07-05 19:06] VITALS: BMI 30.9
--- NOTE | 2024-07-05 19:08 | ED.GENMED ---
History of Present Illness
General
Chief Complaint: Chest Pain
Time Seen by Provider: 07/05/24 19:05
History of Present Illness
History of Present Illness:
Patient is a 59-year-old man with history of CAD with stent, hypertension, hyperlipidemia, reflux presenting to the emergency room with chest pain. Patient states that last night he developed sternal chest pressure. Did not radiate. He did note
that he had some shortness of breath associated with that that was exertional. He states that the pressure worsen when he leans forward. It is not pleuritic. No leg swelling hemoptysis recent travel or history of blood clot. This does not feel
similar to when he needed his stent. He is seen cardiology Dr. Dejesus tomorrow. He does take daily aspirin. He did not take any nitroglycerin. He does state that the chest pressure has resolved.
Past History
Past History
ED Past Medical History: HTN, Hypercholesterolemia and Other (kidney stone , hiatal hernia); Negative IDDM or NIDDM
ED Past Surgical History: Orthopedic (R shoulder pectoral muscle reattached)
Social History
Tobacco: Non-smoker
Alcohol: Occasional
Drug: None
Personal:
Living: with family
Employment: Employed
Family History
Family History: Hypertension (Father and multiple siblings) and Early CAD (Father)
Phy Exam
Physical Exam
Physical Exam:
GENERAL: in no acute distress
HEENT: normocephalic, extraocular movements intact, moist oral mucosa
NECK: normal inspection
RESPIRATORY: no respiratory distress, clear to auscultation bilaterally
CARDIOVASCULAR: regular rate and rhythm
ABDOMEN/: soft, non-distended, non-tender to palpation, no rebound or guarding
EXTREMITIES: non-tender, no edema/swelling
NEUROLOGIC: awake and alert, moves all extremities
SKIN: warm
Scores
Heart Score for Chest Pain Patients
STEMI patient?: Not applicable
Course
Orders/Labs/Results
Orders:
Orders
07/05/24 16:01
Electrocardiogram (*1) Urgent
Reason for Study: Chest Pain
07/05/24 16:02
EKG- Treatment ONCE
07/05/24 16:27
CXR2 [CR Chest - 2 Views ] Urgent
Comment:
Reason For Exam: chest pain
07/05/24 16:37
Complete Blood Count/With Diff Urgent
Comprehensive Metabolic Panel Urgent
Prothrombin Time Urgent
07/05/24 19:17
Troponin I Routine
Abnormal Lab Results
07/05/24
16:37
Potassium 3.3 L mmol/L
(3.5-5.1)
Carbon Dioxide 19 L mmol/L
(22-30)
Glucose 121 H mg/dl
(70-99)
Total Bilirubin 1.9 H mg/dl
(0.2-1.3)
AST 75 H U/L
(17-59)
ALT 79 H U/L
(0-50)
07/05/24 16:37
07/05/24 16:37
Vital Signs
Initial and Last Documented VS:
Initial Vital Signs
Temp Pulse Resp BP Pulse Ox
98.4 F 57 16 172/93 98
07/05/24 16:25 07/05/24 16:25 07/05/24 16:25 07/05/24 16:25 07/05/24 16:25
Last Documented Vital Signs
Temp Pulse Resp BP Pulse Ox
98.6 F 52 18 156/80 98
07/05/24 19:09 07/05/24 19:09 07/05/24 19:09 07/05/24 19:09 07/05/24 19:09
MDM/Problems Addressed
Differential Diagnosis Includes:
Patient is a 5-year-old male with history of CAD status post stent presenting to the emergency department with chest pain that has now resolved. Vitals are notable initially for hypertension and exam is otherwise reassuring. Differential is broad
but consists of atypical ACS versus reflux versus MSK. Considered PE though less likely as patient does not have any risk factors and is not hypoxic or tachycardic. Blood work obtained prior to evaluation is unremarkable. Troponin pending. The
pain has been ongoing for 24 hours and has since resolved. EKG per my interpretation normal sinus rhythm.
*Critical Care Note
Total Time (30-74mins, 75-104mins- exclusive of procedures): Not Applicable
Update Note
Update Note:
Troponin is negative. The pain has been resolved and it was 24 hours ago so do not need a delta troponin. He is seeing cardiology tomorrow which is reassuring. We did discuss patient's transaminitis. He states that it has been ongoing for quite
some time but he is never followed up with anybody. I did advise him to follow-up with GI. He does state that he sees PCP next week. He will also notify his PCP of the elevated liver function test. All questions answered. Patient stable for
discharge at this time.
ED Attending Note
-
Portions of this chart may have been created with voice recognition software.� Occasional wrong word or��sound alike� substitutions may have occurred due to the inherent limitations of voice recognition software.
Discharge Plan
Departure
Patient Disposition: Home (Routine Discharge)
Date of Disposition: 07/05/24
Time of Disposition: 20:02
Patient with high blood pressure during this ER visit?: No
Discharge Problem:
Chest pain, Abnormal transaminases
Instructions: Chest Pain PCP Follow Up
Prescriptions:
No Action
amlodipine 5 MG tablet
5 mg PO DAILY
aspirin [Adult Low Dose Aspirin] 81 MG tablet,delayed release (DR/EC)
81 mg PO DAILY
benazepril 40 MG tablet
40 mg PO DAILY
omega-3 acid ethyl esters [Lovaza] 1 GM capsule
2 gm PO DAILY
fenofibrate 160 MG tablet
160 mg PO DAILY
omeprazole 20 mg Capsule,Delayed Release(Dr/Ec)
20 mg PO DAILYPRN PRN (Reason: gerd)
metoprolol succinate 25 mg Tablet Extended Release 24 Hr
25 mg PO DAILY
Brilinta 90 mg tablet
90 mg PO BID Qty: 180 3RF
ezetimibe [Zetia] 10 mg tablet
10 mg PO DAILY Qty: 90 3RF
chlorthalidone 25 MG tablet
25 mg PO DAILY
rosuvastatin 5 mg tablet
5 mg PO MOWEFR@0800
epinephrine [Auvi-Q] 0.3 mg/0.3 mL auto-injector
0.3 mg IM Q5-15M PRN (Reason: anaphylaxis) Qty: 2 0RF
Referrals:
Jordyn Cabral MD [Active] -
Carlos Couch DO [Family Provider] -
Activity Restrictions/Additional Instructions:
You were evaluated in the Emergency Department today for chest pain. Your evaluation has shown no signs of medical conditions requiring emergent intervention at this time, however we recommend that you follow up with your primary care physician or
your drywall boardhanger as soon as possible for further testing as an outpatient.
Please keep your appointment tomorrow with cardiology. Regarding your elevated liver function test, I did give you GI to follow-up with. You may also notify your PCP Who can help trend the liver function and help with imaging if needed.
Please schedule an appointment for follow up with your primary care physician as soon as possible.
Return to the Emergency Department if you experience worsening or uncontrolled chest pain, shortness of breath, light headedness, feeling faint, nausea, vomiting, or any other concerning symptoms.
Thank you for choosing us for your care.
Interventions
Interventions:
*Risk Screen - Suicide Last Done: 07/05/24 16:25
*General Assessment Last Done: 07/05/24 19:07
*Neglect/Abuse Screening Last Done: 07/05/24 16:25
*ED COVID-19 Vaccine History Last Done: 07/05/24 19:07
ED- Cardiac Assessment Last Done: 07/05/24 19:20
Discharge Date and Time
Print Language: ARMENIAN
[2024-07-05 19:09] VITALS: BP 156/80
[2024-07-05 19:51] LABS: Troponin I < 0.012 ng/ml
== END 2024-07-05 20:15 | disposition home or self-care (01) ==
LOC: EMR 16:01
PROVIDERS: Emergency Medicine; EMERGENCY PHYSICIAN Student in an Organized Health Care Education/Training Program; FAMILY PHYSICIAN Family Medicine
DX: R07.89 Other chest pain (principal); R74.01 Elevation of levels of liver transaminase levels; I25.10 Atherosclerotic heart disease of native coronary artery without angina pectoris; I10 Essential (primary) hypertension; E78.00 Pure hypercholesterolemia, unspecified; K21.9 Gastro-esophageal reflux disease without esophagitis; Z82.49 Family history of ischemic heart disease and other diseases of the circulatory system; Z87.442 Personal history of urinary calculi; Z95.5 Presence of coronary angioplasty implant and graft
CPT/HCPCS: 99283; 71046; 80053; 84484; 85025; 85610; 93005

== ENCOUNTER 2024-10-31 19:07 | Emergency (ER) | payer OTHER, SELFPAY ==
[2024-10-31 19:12] VITALS: BP 123/70
[2024-10-31 19:44] LABS: % Immature Granulocytes 0.3 % (0-0.5); % Lymphocytes 9.9 % (20.5-51.1); % Monocytes 3.8 % (1.7-9.3); Absolute Lymphocytes 0.3 10^3/uL (1.2-3.4); Absolute Monocytes 0.1 10^3/uL (0.1-0.6); Absolute Neutrophils 2.7 10^3/uL (1.4-6.5); Hematocrit 40.1 % (39.0-52.0); Hemoglobin 14.7 g/dL (13.0-18.0); Mean Corp Hgb Conc. 36.7 g/dL (33.0-37.0); Mean Corpuscular Hgb 30.6 pg (27.0-31.0); Mean Corpuscular Volume 83.5 fL (80.0-94.0); Mean Platelet Volume 10.9 fL (7.4-10.4); Nucleated Red Blood Cells % 0 % (-); Platelet Count 107 10^3/uL (130-400); Red Cell Dist. Width 12.2 % (11.5-14.5); White Blood Cell Count 3.1 10^3/uL (4.8-10.8)
[2024-10-31 19:55] LABS: Lactic Acid 1.4 mmol/L (0.7-2.0)
[2024-10-31 19:57] LABS: ALT (SGPT) 64 U/L (0-50); AST (SGOT) 85 U/L (17-59); Albumin 4.5 g/dl (3.5-5.0); Alkaline Phosphatase 73 U/L (38-126); Blood Urea Nitrogen 16 mg/dl (9-20); Calcium 8.7 mg/dl (8.4-10.2); Carbon Dioxide 24 mmol/L (22-30); Chloride 102 mmol/L (98-107); Glucose 125 mg/dl (70-99); Potassium 3.2 mmol/L (3.5-5.1); Sodium 135 mmol/L (135-145); Total Bilirubin 2.9 mg/dl (0.2-1.3); Total Protein 7.1 g/dl (6.3-8.2); eGFR > 60.00
[2024-10-31 19:58] LABS: Urine Albumin 1+ (Neg - Trace); Urine Bilirubin Negative (Negative); Urine Character Clear (Clear); Urine Color Amber; Urine Glucose Negative (Negative); Urine Ketone Negative (Negative); Urine Leukocyte Negative (Negative); Urine Nitrite Negative (Negative); Urine Occult Blood Negative (Negative); Urine Urobilinogen 2+ (Neg - 1+)
[2024-10-31 20:07] LABS: Troponin I < 0.012 ng/ml
[2024-10-31 20:19] LABS: Urine Bacteria Few (Negative); Urine Red Blood Cell 0-2 /HPF (0-2)
[2024-10-31 21:25] VITALS: BMI 29.1
[2024-10-31] MEDS: TYLENOL 1000 MG PO (21:54)
--- NOTE | 2024-10-31 22:24 | ED.GENMED ---
History of Present Illness
General
Chief Complaint: Breathing Problem
Source: patient, previous radiology exam (Previous chest x-ray) and previous hospital records ([facility] report December 2023)
Exam Limitations: none
Time Seen by Provider: 10/31/24 21:58
Nursing documentation reviewed up to this point in time: agreed with
History of Present Illness
History of Present Illness:
This is a 59-year-old gentleman who has history of hypertension, hyperlipidemia, kidney stones, CAD status post PTCA with stent December 2023.
He presents with 2-day history of acute febrile illness. Complains of intermittent episodes of shaking chills, myalgias, arthralgias, diaphoresis, intermittent mild headache. Symptoms are worse in the evening hours accompanied with high fever with
Tmax of 104 �F. He has been taking ibuprofen 400 mg sporadically for fever with good but temporary relief.
He has not noticed a rash. No cough nor congestion or sore throat, no neck pain, no flank pain, no dysuria no urgency no hematuria nor frequency, no abdominal pain, no nausea no vomiting, no diarrhea or constipation.
He does note intermittent chest discomfort accompanied with generalized myalgias and intermittent shortness of breath most noted with fever. Symptoms resolve with resolution of fever.
Chest pain is quite different from anginal chest pain.
No close contacts with similar symptoms and no recent travel.
He saw his PCP today, Dr. Couch, and was started on a Z-Palomo for potential swollen glands. Patient himself has not noted any swollen glands and denies sore throat.
Along with taking ibuprofen he has been taking showers to relieve his symptoms.
Past History
Past History
ED Past Medical History: CAD, HTN, Hypercholesterolemia and Other (kidney stone , hiatal hernia); Negative IDDM or NIDDM
ED Past Surgical History: Cardiac (PTCA with stent December 2023) and Orthopedic (R shoulder pectoral muscle reattached)
Social History
Tobacco: Non-smoker
Alcohol: Occasional
Drug: None
Personal:
Living: with family
Employment: Employed
Family History
Family History: Hypertension (Father and multiple siblings) and Early CAD (Father)
Phy Exam
Physical Exam
Physical Exam:
GENERAL: 59-year-old gentleman appears his stated age, bright and alert, pleasant, easily communicative and in no acute distress. Low-grade fever noted.
EYE: pupils equal and reactive. anicteric
NECK: Supple, nontender, no meningismus, no significant adenopathy.
ENT: posterior pharynx is clear, oral mucosa is moist. TM clear b/l, nares patent.
CARDIAC: Regular rate and rhythm. no murmur. No rub.
LUNGS: Clear breath sounds bilaterally, no acute respiratory distress, no wheezes/rales/rhonchi
ABDOMEN: Soft, nondistended, without focal tenderness, no r/g, no cvat. normoactive BS.
NEUROLOGICAL: Alert and oriented x3, no focal neuro deficits. Gait is [place] and steady.
SKIN: Warm and dry, normal color, skin intact. No rash.
MUSCULOSKELETAL: No C/C/E. peripheral pulses are full and equal b/l. No palpable tenderness.
PSYCH: Normal and appropriate interaction.
Scores
Heart Failure Risk
Heart Failure Risk Score: Not Applicable
Sepsis
Sepsis Screening
Sepsis Assessment: Sepsis Ruled Out
Sepsis Screen
Sepsis Screen: Sepsis Ruled Out
Date: 11/01/24
Time: 03:05
Course
Orders/Labs/Results
Orders:
Orders
10/31/24 19:16
Electrocardiogram (*1) Urgent
Reason for Study: Chest Pain
EKG- Treatment ONCE
10/31/24 19:17
CR Chest - 2 Views Urgent
Comment:
Reason For Exam: suspected infection
10/31/24 19:30
Complete Blood Count/With Diff Urgent
Comprehensive Metabolic Panel Urgent
Lyme Progressive Urgent
Date Specimen was Collected: 10/31/24
Time Specimen was Collected: 19:17
Comment: ADD ON
Troponin I Urgent
Blood Culture Stat
MIKO Source: Blood/Venous
Specimen Description:
10/31/24 19:31
Lactic Acid Urgent
Urinalysis Reflex To Culture Urgent
Date Specimen was Collected: 10/31/24
Time Specimen was Collected: 19:17
Urine Microscopic Reflex Cult Urgent
10/31/24 21:51
Acetaminophen [Tylenol] 1,000 mg PO NOW STA
10/31/24 22:25
Add On- LAB Urgent
Tests Added?: Lyme progressive
10/31/24 22:51
Blood Culture Q30M
MIKO Source: Blood/Venous
Specimen Description:
Blood Culture Q30M
MIKO Source: Blood/Venous
Specimen Description:
Abnormal Lab Results
10/31/24 10/31/24
19:30 19:31
WBC 3.1 L 10^3/uL
(4.8-10.8)
Plt Count 107 L 10^3/uL
(130-400)
MPV 10.9 H fL
(7.4-10.4)
Absolute Lymphs (auto) 0.3 L 10^3/uL
(1.2-3.4)
Neutrophils % 85.0 H %
(42.2-75.2)
Lymphocytes % 9.9 L %
(20.5-51.1)
Potassium 3.2 L mmol/L
(3.5-5.1)
Glucose 125 H mg/dl
(70-99)
Total Bilirubin 2.9 H mg/dl
(0.2-1.3)
AST 85 H U/L
(17-59)
ALT 64 H U/L
(0-50)
Urine Urobilinogen 2+ A
(Neg - 1+)
Urine Bacteria (Reflex) Few A
(Negative)
Urine Albumin (Reflex) 1+ A
(Neg - Trace)
10/31/24 19:30
10/31/24 19:30
Vital Signs
Initial and Last Documented VS:
Initial Vital Signs
Temp Pulse Resp BP Pulse Ox
98.8 F 94 16 123/70 98
10/31/24 19:12 10/31/24 19:12 10/31/24 19:12 10/31/24 19:12 10/31/24 19:12
Last Documented Vital Signs
Temp Pulse Resp BP Pulse Ox
101.2 F H 94 16 123/70 98
10/31/24 21:25 10/31/24 19:12 10/31/24 19:12 10/31/24 19:12 10/31/24 22:24
MDM/Problems Addressed
Differential Diagnosis Includes:
Patient with 2-day history of acute febrile illness with Tmax reportedly 104 �F.
Intermittent arthralgias/myalgias, shortness of breath, fatigue as well as report of significant shaking chills all associated with accompanying intermittent fevers.
Concern for viral syndrome, bacteremia/sepsis, pneumonia. Must consider potential tickborne illness however no known exposure nor reported history of recent tick bite.
No recent dental surgery nor instrumentation. No risk factors for bacteremia.
No recent travel.
Overall well in appearance. Remains hemodynamically stable.
Initially presented afebrile but febrile upon retesting, has been given a dose of Tylenol.
Labs notable for leukopenia with white blood cell count of 3.1.
Mild hypokalemia at 3.2. Similar sporadic hypokalemia noted previously.
Minimally elevated LFTs; similar to previous. Patient denies abdominal pain, and abdomen is soft without appreciable tenderness. Nothing to suggest acute cholecystitis nor acute intra-abdominal infectious process.
Urinalysis is unremarkable. Lactic acid is normal.
Chest x-ray is unremarkable, no evidence of infiltrate.
EKG is unremarkable and troponin is negative.
Patient has no risk factors for bacteremia, no history of immunocompromise. I suspect fever is viral syndrome in nature.
Due to complaints of shaking chills, concern for rigors, must consider bacteremia, must also consider tickborne illness such as Lyme's disease however no reported tick exposure nor rash.
For completeness sake will add Lyme titer and will check blood cultures.
At this point recommend he continue Z-Palomo that was started today, this should cover potential for Lyme's disease, Ehrlichia etc.
As patient chronically maintained on Brilinta, recommend his antipyretic of choice should be acetaminophen and to only use ibuprofen sparingly if acetaminophen is not completely effective.
Discussed importance of staying well-hydrated on a daily basis, rest.
Follow-up with PCP for recheck.
Return precautions discussed.
Chronic conditions affecting care: HTN and CAD
*Radiology
Radiology exam reviewed: radiology read reviewed
*Pulse Oximetry
SaO2: 98
Oxygen Mode of Delivery: Room air
Patient hypoxic: no
*EKG
Interpreted by ED Provider?: Yes
Interpretation: normal
Comparison EKG: no changes
Rate: normal
Rhythm: sinus
[place]: normal axis
Interval: normal interval
QRS Pattern: normal QRS
Ischemia: no ischemia
*Division Operations Manager Interpretation
Rate: normal
Interpretation: normal
Rhythm: sinus
*Critical Care Note
Total Time (30-74mins, 75-104mins- exclusive of procedures): Not Applicable
ED Attending Note
-
Portions of this chart may have been created with voice recognition software.� Occasional wrong word or��sound alike� substitutions may have occurred due to the inherent limitations of voice recognition software.
Discharge Plan
Departure
Patient Disposition: Home (Routine Discharge)
Date of Disposition: 10/31/24
Time of Disposition: 22:52
Patient with high blood pressure during this ER visit?: No
Condition: Good
Discharge Problem:
Acute febrile illness
Instructions: Fever in adults - Discharge instructions
Prescriptions:
No Action
amlodipine 5 MG tablet
5 mg PO DAILY
aspirin [Adult Low Dose Aspirin] 81 MG tablet,delayed release (DR/EC)
81 mg PO DAILY
benazepril 40 MG tablet
40 mg PO DAILY
omega-3 acid ethyl esters [Lovaza] 1 GM capsule
2 gm PO DAILY
fenofibrate 160 MG tablet
160 mg PO DAILY
omeprazole 20 mg Capsule,Delayed Release(Dr/Ec)
20 mg PO DAILYPRN PRN (Reason: gerd)
metoprolol succinate 25 mg Tablet Extended Release 24 Hr
25 mg PO DAILY
Brilinta 90 mg tablet
90 mg PO BID Qty: 180 3RF
ezetimibe [Zetia] 10 mg tablet
10 mg PO DAILY Qty: 90 3RF
chlorthalidone 25 MG tablet
25 mg PO DAILY
rosuvastatin 5 mg tablet
5 mg PO MOWEFR@0800
epinephrine [Auvi-Q] 0.3 mg/0.3 mL auto-injector
0.3 mg IM Q5-15M PRN (Reason: anaphylaxis) Qty: 2 0RF
Referrals:
Carlos Couch DO [Family Provider, Family Practice] - Call in 1-3 days for appt
Activity Restrictions/Additional Instructions:
Stay well-hydrated on a daily basis.
Rest.
I want you to take acetaminophen 1000 mg every 4 hours as needed for fever. If acetaminophen is not completely effective, you may take ibuprofen 400 mg every 6-8 hours as needed for fever, aches.
Lyme titer and blood cultures have been ordered, you will be notified if these are positive.
Interventions
Interventions:
*Risk Screen - Suicide Last Done: 10/31/24 19:12
*General Assessment Last Done: 10/31/24 21:25
*Neglect/Abuse Screening Last Done: 10/31/24 19:12
*ED- Fall Risk Assessment Last Done: 10/31/24 21:25
*ED COVID-19 Vaccine History Last Done: 10/31/24 21:25
*Nursing Disposition Last Done: 10/31/24 23:11
ED- Cardiac Assessment Last Done: 10/31/24 21:26
ED- Neurological Assessment Last Done: 10/31/24 21:26
ED- Pulmonary Assessment Last Done: 10/31/24 21:26
ED-Skin Assessment Last Done: 10/31/24 21:26
Discharge Date and Time
Discharge Date/Time: 10/31/24 23:14
Print Language: [id number]
[2024-11-01 13:28] LABS: Lyme Antibody Screen, EIA Negative (Negative)
== END 2024-10-31 23:14 | disposition home or self-care (01) ==
LOC: EMR 19:07
PROVIDERS: Emergency Medicine; EMERGENCY PHYSICIAN Emergency Medicine; FAMILY PHYSICIAN Family Medicine
DX: R50.9 Fever, unspecified (principal); M79.10 Myalgia, unspecified site; R51.9 Headache, unspecified; I25.10 Atherosclerotic heart disease of native coronary artery without angina pectoris; E78.00 Pure hypercholesterolemia, unspecified; I10 Essential (primary) hypertension; Z95.5 Presence of coronary angioplasty implant and graft
CPT/HCPCS: 99285; 71046; 80053; 81003; 81015; 83605; 84484; 85025; 86618; 87040; 93005